=== PATIENT | male | born 1960 | race Caucasian/White ===

== ENCOUNTER 2022-05-21 09:44 | Emergency (ER) | payer MEDICARE, SELFPAY ==
[2022-05-21 09:58] VITALS: BP 112/67; PULSE 75; RESP 16; TEMP 37.1; O2SAT 99
[2022-05-21 09:59] VITALS: BP 112/67; PULSE 75; RESP 16; TEMP 37.1; O2SAT 99
--- NOTE | 2022-05-21 10:13 | ED.EYEPROB ---
HPI - Eye Problem General Chief complaint: Eye Problems Stated complaint: stye on right eye Time Seen by Provider: 05/21/22 10:20 Source: patient and RN notes reviewed Mode of arrival: ambulatory Limitations: no limitations History of Present Illness HPI Narrative: 61-year-old male presents with concern for a stye on his right upper eyelid. Reports its been present for 1-1/2 weeks and is getting more swollen, painful. He reports he has a history of styes, so he has been using his erythromycin ointment without relief. Reports he sees an cloth burler at [facility] and has an appointment in the middle of May for a checkup. He reports his eye is has crusty drainage when he wakes up in the morning with his eyelid crusted shut. He denies vision changes. Patient is currently undergoing chemotherapy treatment for liver cancer chief complaint: other Related Data Home Medications Medication Instructions Recorded Confirmed erythromycin 5 mg/gram (0.5 %) eye 1 applic ophthalmic (eye) HS 05/21/22 05/21/22 ointment hydrocodone 5 mg-acetaminophen 325 1 tablet PO PRN PRN Pain 05/21/22 05/21/22 mg tablet peg 3350-electrolytes 236 1 ml PO DAILY 05/21/22 05/21/22 gram-22.74 gram-6.74 gram-5.86 gram solution tramadol 50 mg tablet 50 mg PO PRN PRN Pain 05/21/22 05/21/22 Allergies Allergy/AdvReac Type Severity Reaction Status Date / Time hazelnut Allergy Mild Hazelnut Verified 05/21/22 09:56 acetic acid Allergy Unknown Vinegar Verified 05/21/22 09:56 Vinegar Allergy Unknown Itching Uncoded 05/21/22 09:56 Marina Nut AdvReac Mild ITCH Uncoded 05/21/22 09:56 VINEGAR; BALSAMIC AdvReac Mild ITCH Uncoded 05/21/22 09:56 Review of Systems Review of Systems: CONSTITUTIONAL: Denies malaise, chills, sweats, or fever. EYES: Denies visual changes. Reports right upper eyelid stye with redness, swelling, tenderness. Reports eye discharge ENT: Denies rhinorrhea, congestion, sinus pain, otalgia or sore throat. SKIN: Denies rash or itching. NEUROLOGIC: Denies numbness, weakness, or headache. PSYCHIATRIC: Denies anxiety or depression. All systems reviewed & are unremarkable except as noted in HPI and below PMFSH Social History Social History Smoking status: Current every day smoker Alcohol intake: never Comments At time of signature, agree with nursing past medical, surgical, social and family history. There is no relevant family history pertinent to the presenting complaint Exam Narrative: GENERAL: Well-appearing, well-nourished, and in no acute distress. HEAD: Normocephalic, atraumatic. EYES: PERRLA, sclera clear, and EOMI. No nystagmus. Right slightly sclera and conjunctivae injected. Hordeolum noted in the right upper lid with considerable erythema, edema, tenderness. No periorbital edema noted ENT: Nares clear, turbinates pink, no rhinorrhea or epistaxis. Mucous membranes moist. TM pearly clark with sharp light reflex bilaterally; no tragal tenderness. NECK: Supple. CHEST: No respiratory distress. Speaks in full sentences. HEART: Regular rate and rhythm. SKIN: Warm, dry, no visible rash. NEURO: Alert and oriented x3. PSYCH: Normal mood and affect Course Course Emergency Course: Was advised to follow-up with his cloth burler sooner, particularly if of symptoms or not improving Patient is aware of diagnosis, understands and agrees to treatment plan. Anticipatory guidance given. Patient agrees to follow-up as directed and is aware of reasons to seek care at the emergency department. Portions of this record may have been created with voice recognition software Level of Care: Express Care Visit Vital Signs Vital signs: Vital Signs Temperature 98.8 F 05/21/22 09:58 Pulse Rate 75 05/21/22 09:58 Respiratory Rate 16 05/21/22 09:58 Blood Pressure 112/67 05/21/22 09:58 Pulse Oximetry 99 05/21/22 09:58 Temperature 98.8 F 05/21/22 09:59 Pulse Rate 75 05/21/22 09:59
== END 2022-05-21 10:31 | disposition home or self-care (01) ==
PROVIDERS: Emergency Provider Nurse Practitioner; PCP Internal Medicine
DX: H00.011 Hordeolum externum right upper eyelid (principal); F17.200 Nicotine dependence, unspecified, uncomplicated; Z85.05 Personal history of malignant neoplasm of liver
CPT/HCPCS: 99203; G0463

== ENCOUNTER 2023-12-02 11:17 | Emergency (ER) | payer MEDICARE, SELFPAY ==
--- NOTE | ~2023-12-02 | XR_ITS ---
EXAMINATION: XR chest 2V DATE: 12/02/2023 12:15 INDICATION: Sternal pain. TECHNIQUE: Frontal and lateral views of the chest were obtained on 3 radiographs. COMPARISON: Chest single view 06/09/2018 FINDINGS: There is no pneumonia, pleural effusion, or pneumothorax. The heart size is normal. The karen rnum is normal. There is a right internal jugular port with tip in superior vena cava. IMPRESSION: 1. No acute cardiopulmonary disease. Reviewed, dictated and finalized at location E. ITY COMPLIANCE MANAGER
[2023-12-02 11:25] VITALS: BP 114/87; PULSE 75; RESP 16; TEMP 36.9; O2SAT 97
--- NOTE | 2023-12-02 11:52 | ED.URI ---
HPI - URI/Sore Throat General Chief Complaint: Upper Respiratory Infection Stated Complaint: CHEST PAIN/SORE THROAT Time Seen by Provider: 12/02/23 11:58 Source: patient and RN notes reviewed Mode of arrival: ambulatory Limitations: no limitations History of Present Illness HPI Narrative: 63-year-old male with history of liver cancer presents with concern for sore throat, cough, bronchial discomfort. Reports symptoms started 1 week ago. He reports it was worse on and Saturday and is starting to get better. He reports he has a chemo infusion coming up and to surgery and he wants to make sure he is okay. He denies any current fever, chills, sweats. Reports no change in his appetite. He is not taking any medications for his symptoms. MD elicited complaint: cough and sore throat Related Data Home Medications Medication Instructions Recorded Confirmed erythromycin 5 mg/gram (0.5 %) eye 1 applic ophthalmic (eye) HS 05/21/22 05/21/22 ointment hydrocodone 5 mg-acetaminophen 325 1 tablet PO PRN PRN Pain 05/21/22 05/21/22 mg tablet peg 3350-electrolytes 236 1 ml PO DAILY 05/21/22 05/21/22 gram-22.74 gram-6.74 gram-5.86 gram solution tramadol 50 mg tablet 50 mg PO PRN PRN Pain 05/21/22 05/21/22 Allergies Allergy/AdvReac Type Severity Reaction Status Date / Time hazelnut Allergy Mild Hazelnut Verified 05/21/22 09:56 acetic acid Allergy Unknown Vinegar Verified 05/21/22 09:56 Vinegar Allergy Unknown Itching Uncoded 05/21/22 09:56 Marina Nut AdvReac Mild ITCH Uncoded 05/21/22 09:56 VINEGAR; BALSAMIC AdvReac Mild ITCH Uncoded 05/21/22 09:56 Review of Systems Review of Systems: CONSTITUTIONAL: Denies malaise, chills, sweats, or fever. EYES: Denies visual changes, redness, or discharge. ENT: Denies rhinorrhea, congestion, sinus pain, otalgia and sore throat. CARDIOVASCULAR: Denies chest pain, palpitations, or edema. RESPIRATORY: Reports improving cough. Denies dyspnea. GASTROINTESTINAL: Denies abdominal pain, nausea, vomiting, diarrhea SKIN: Denies rash or itching. MUSCULOSKELETAL: Denies myalgia. NEUROLOGIC: Denies headache. All systems reviewed & are unremarkable except as noted in HPI and below PMFSH Social History Social History Smoking status: Current every day smoker Alcohol intake: never Comments At time of signature, agree with nursing past medical, surgical, social and family history. There is no relevant family history pertinent to the presenting complaint Exam Narrative: GENERAL: Well-appearing, well-nourished, and in no acute distress. HEAD: Normocephalic EYES: PERRLA, conjunctivae clear ENT: Nares clear. Mucous membranes moist. TM pearly clark with sharp light reflex bilaterally; no tragal tenderness. Oropharynx not erythematous without lesions. Tonsils not enlarged and without exudate, no drooling, no hoarseness, no trismus, uvula midline. NECK: Supple. No lymphadenopathy CHEST: Slightly diminished in the bases, otherwise clear to auscultation, breath sounds equal. No wheezing, rhonchi, rales, or stridor. No respiratory distress, speaks in full sentences. HEART: Regular rate and rhythm. No murmur heard. SKIN: Warm, dry, no rash. NEURO: Alert and oriented x3. PSYCH: Normal mood and affect Course Course Emergency Course: Patient is aware of diagnosis, understands and agrees to treatment plan. Anticipatory guidance given. Patient agrees to follow-up as directed and is aware of reasons to seek care at the emergency department. Portions of this record may have been created with voice recognition software Level of Care: Express Care Visit Vital Signs Vital signs: Vital Signs Temperature 98.4 F 12/02/23 11:25 Pulse Rate 75 12/02/23 11:25 Respiratory Rate 16 12/02/23 11:25 Blood Pressure 114/87 12/02/23 11:25 Pulse Oximetry 97 12/02/23 11:25 Temperature 98.4 F 12/02/23 11:25 Pulse Rate 75 12/02/23 11:25 Respiratory Rate 16 12/02/23 11:25 Blood
== END 2023-12-02 12:33 | disposition home or self-care (01) ==
PROVIDERS: Emergency Provider Nurse Practitioner; PCP Internal Medicine
DX: J06.9 Acute upper respiratory infection, unspecified (principal); F17.200 Nicotine dependence, unspecified, uncomplicated
CPT/HCPCS: 71046; 87081; 87880; 99213; G0463

== ENCOUNTER 2024-03-20 10:28 | Emergency (ER) | payer MEDICARE, SELFPAY ==
--- NOTE | 2024-03-20 10:31 | ED.URI ---
HPI - URI/Sore Throat General Chief Complaint: Upper Respiratory Infection Stated Complaint: sorethroat Time Seen by Provider: 03/20/24 10:41 Source: patient, RN notes reviewed and old records reviewed Mode of arrival: ambulatory Limitations: no limitations History of Present Illness HPI Narrative: 63-year-old male presents to the [facility] with complaints of a sore throat for 1 week. Has been using salt water gargles and throat lozenges. Denies any nasal congestion, ear pain, coughing. Denies fever Currently undergoing chemotherapy for liver cancer. Goes to [facility] and receives chemotherapy every Saturday. Is due to go for chemotherapy this coming Saturday03/24/24 Pertinent past history: immunosuppression Onset (ago): week(s) (1) Consistency: constant and progressively worsening Treatments prior to arrival: other (Salt water gargles, lozenges) Related Data Allergies Allergy/AdvReac Type Severity Reaction Status Date / Time hazelnut Allergy Mild Hazelnut Verified 03/20/24 10:39 acetic acid Allergy Unknown Vinegar Verified 03/20/24 10:39 Vinegar Allergy Unknown Itching Uncoded 03/20/24 10:39 Marina Nut AdvReac Mild ITCH Uncoded 03/20/24 10:39 VINEGAR; BALSAMIC AdvReac Mild ITCH Uncoded 03/20/24 10:39 Review of Systems Review of Systems: All systems reviewed & are unremarkable except as noted in HPI and below Constitutional: Constitutional: Reports no additional constitutional complaints Eyes: Eyes: Reports no additional eye complaints ENT: Reports as per HPI and Reports sore throat Cardiovascular: Cardiovascular: Reports no additional cardiovascular complaints, Denies chest pain and Denies dyspnea Respiratory: Respiratory: Reports no additional respiratory complaints, Denies chest congestion, Denies cough and Denies dyspnea Gastrointestinal: Gastrointestinal: Reports no additional gastrointestinal complaints, Denies abdominal pain, Denies nausea and Denies vomiting Musculoskeletal: Musculoskeletal: Reports no additional musculoskeletal complaints Integumentary/Breasts: Skin/Breast: Reports system reviewed and no additional complaints, except as docu Neurologic: Reports system reviewed and no additional complaints, except as documented Psychiatric: Psychiatric: Reports no additional psychiatric complaints Allergic/Immunologic: Allergic/Immunologic: Reports no additional allergic/immunologic complaints PMFSH Past Medical History Medical History Liver cancer Treatment At [facility], chemo therapy every 3 weeks on Tuesdays Social History Social History (Updated 03/20/24 @ 10:54 by Marzena Chavis APRN) Smoking status: Former smoker Alcohol intake: never Comments At the time of my signature, I reviewed and agree with the nursing past medical, surgical, social, and family history. There is no relevant family history pertinent to the patient complaint. Exam Const: General: cooperative, comfortable, no acute distress, well developed, alert, ill appearing chronically and well nourished Nutritional Appearance: well nourished Orientation/consciousness: patient oriented x3 Limitations: no limitations HENMT: Head: normal to inspection Ears: hearing grossly normal bilaterally, external ears normal, TM's normal bilaterally, EAC's normal, mastoids normal and no periauricular adenopathy Face/Nose/Sinus: Normal external nose present, Normal nares present, Normal nasal mucous membranes and turbinates present, normal facial exam and face symmetric Face and sinus: normal facial exam, sinuses nontender and face symmetric Throat: uvula midline, postnasal drainage and no uvular edema Eyes: General: appearance normal, both eyes and all related structures Alignment and Position: alignment normal Periorbital: periorbital findings normal Pupils: Equal, round and reactive pupils present EOM: EOMs intact bilaterally Neck: Neck: normal visual inspection, full ROM,
[2024-03-20 10:40] VITALS: BP 112/90; PULSE 105; RESP 16; TEMP 37; O2SAT 99
== END 2024-03-20 11:00 | disposition home or self-care (01) ==
PROVIDERS: Emergency Provider Nurse Practitioner
DX: R09.82 Postnasal drip (principal); J02.9 Acute pharyngitis, unspecified; Z87.891 Personal history of nicotine dependence; C22.9 Malignant neoplasm of liver, not specified as primary or secondary
CPT/HCPCS: 87081; 87880; 99213; G0463

== ENCOUNTER 2024-12-08 08:45 | Outpatient (RCR) | payer MEDICARE, SELFPAY ==
[2024-10-02 08:27] VITALS: BP 139/73; PULSE 82; RESP 14; TEMP 37.4; O2SAT 96; BMI 18.8
--- NOTE | 2024-10-02 15:03 | PDRADONCCN ---
[facility] Date/Time Seen Date/Time: 10/02/24 15:03 History of Present Illness History of Present Illness: RADIATION ONCOLOGY CONSULTATION DOS: 10/02/2024 Diagnosis: Hypopharynx SCC New Patient History of Present Illness/Review and Summary of Existing Medical Records: ?Mr. Hays is a 64 y/o new patient who is seen today in [facility] at the request of Dr. Fried to be evaluated and discuss radiation treatment options for his recent diagnosis of hypopharynx SCC cancer.? Information pertinent to this evaluation is as follows: 64 y/o male with extensive prior smoking and alcohol use He has a history of cirrhosis and multifocal HCC diagnosed in 2018 (per patient). He has received systemic therapy with lenvatinib/pembrolizumab and was transitioned to atezolizumab + bevacizumab in 2021. He was found to have additional liver lesions in 2023. He underwent biopsy of a segment 8 liver lesion on 11/08/23 which was consistent with intrahepatic cholangiocarcinoma. He received liver SBRT to segment 8 lesion 50Gy/5Fx completed 01/03/24 and US/CT-guided thermal ablation of segments IVB + V lesions in 01/2024. He developed a sore throat Surveillance PET imaging from 05/2024 showed a PET-avid right hypopharynx mass and several right SCV/upper mediastinal PET-avid LN concerning for malignancy. He underwent biopsy of right pyriform sinus lesion on 08/06/24 (Dr. Jj) which showed SCC, moderately differentiated, keratinizing. Repeat PET from 08/2024 showed progression of the disease involving the right hypopharynx and right neck. The right hypopharynx mass is bulky and I suspect is invading the thyroid cartilage (T4). There are multiple ipsilateral right neck nodes levels II, III, IV (N2b). There is also a PET-avid anterior right oral cavity lesion. The liver appears to be controlled at this point. He has been referred for consideration of definitive chemoRT. He has received his care at [facility] with Dr. Kinza Fried (Rad Onc) and Dr. Jacob Dobson (Med Onc). He feels generally well. He has sore throat and hoarseness. He has noticed some dysphagia but is still trying to get nutrition in orally as much as possible. He has palpable right neck masses. No other specific concerns. He is retired. He lives in [place], [place] with his brother and sister. He can drive to/from appointments. Prior tobacco and alcohol use, but discontinued. ? Review of Systems: See HPI.? Past Medical/Surgical History Prior RT in 12/2023 as noted above No history of active collagen vascular disease including scleroderma No implanted pacemaker or defibrillator Social History REVIEWED Family History REVIEWED Allergies No IV contrast or iodine allergy ? Medications REVIEWED Physical Exam Vital signs: see RN note ECO General Appearance:? The patient is a well-developed, well-nourished male, sitting, in no acute distress. ? Eyes: EOMI.? Sclerae are anicteric. ENMT: Mucous membranes are moist.? The oropharynx is clear. Speech: Clear, fluent. +Hoarseness present. Dentition: Edentulous in lowers, poor dentition in upper Lymphatics:? He has palpable right neck nodes involving level II, III, IV Respiratory:? Breathing comfortably at rest without wheeze Skin: Skin of the head and neck has good turgor with no evidence of infection, tumor invasion, or breakdown.? There are no surgical scars to suggest prior head and neck surgery. GI: Mild TTP to RUQ abdomen Radiology Review:? I personally reviewed the available images from the radiologic examinations noted above in the HPI, with the findings as noted above. Laboratory Review: reviewed Histopathology: reviewed Diagnosis: 64 y/o male with extensive prior smoking and alcohol use He has a history of cirrhosis and multifocal HCC diagnosed in 2018 (per patient). He has received systemic therapy with lenvatinib/pembrolizumab and was transitioned to atezolizumab + bevacizumab in 2021.? He was found to have additional liver lesions in 2023. He underwent biopsy of a segment 8 liver lesion on 11/08/23 which was consistent with intrahepatic cholangiocarcinoma. He received liver SBRT to segment 8 lesion 50Gy/5Fx completed 01/03/24 (Dr. Fried) and US/CT-guided thermal ablation of segments IVB + V lesions in 01/2024. He remains on immunotherapy (Dr. Dosbon). His liver disease (HCC, cholangio) appears stable based on most recent PET. 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 Referred for chemoRT. He has an indeterminate PET-avid oral cavity/lip lesion. Plan: I did not have copies of his outside images (CT, PET) to review prior to seeing him for consultation today. I did review them prior to writing this consultation report. I also do not have any office notes/operative notes from Dr. Dobson, Dr. Fried, or Dr. Jj and have requested these. I need to discuss his oral cavity lesion with Dr. Jj to see if this has been worked-up/biopsied. I did not see anything obvious on my exam, however I need to do a more thorough oral cavity/lip exam to further evaluate this area. He certainly needs to undergo dental clearance as well. We discussed the indication for chemoradiation therapy in this situation, which is definitive treatment of his hypopharynx cancer.? The logistics and anticipated side effects of a course of definitive chemoradiation were discussed.? Prior to the start of radiation, CT simulation would need to be performed.? These images will be used in the treatment planning process, and treatment would be able to begin approximately 1-2 weeks after simulation. Treatment will require close coordination with his medical oncologist and ENT Informed Consent: The rationale for and potential complications of radiotherapy in this setting were discussed in detail with the patient. They are aware of the potential complications to radiosensitive normal tissue structures both in and out of the radiation field.? Potential complications include, but are not limited to: Eyes: Causing decreased visual acuity, pain with eye movement, or permanent dry eye Hair: Causing hair loss in the treatment field that could become permanent Taste: Causing change in the ability to taste certain foods that could become permanent Mouth: Causing dry mouth during treatment that may become permanent.? Regardless of treatment technique, some component of dry mouth is expected. Teeth: Tooth damage both from the radiation itself and from dental/periodontal disease resulting from chronic xerostomia Swallowing: Swallowing dysfunction caused by either treatment effect of tumor growth could possibly prevent feeding which could necessitate the use of a feeding tube.? In rare occurrences the feeding tube can be permanent. Breathing: Breathing dysfunction caused by either treatment effect or tumor growth could possibly prevent feeding which could necessitate a tracheostomy.? This could be permanent. Bones: The mandible will be at increased risk for bone exposure and fracture. Nerves: Nerves in the treatment field can be damaged and not function properly after radiation. Spinal Cord/Brainstem: Causing neurologic dysfunction that may be debilitating and permanent and/or fatal. We estimated that the risk of a severe complication is 5%.? Next steps: 1.? Dental evaluation.? This has been setup for next week. 2.? CT Simulation will be scheduled in the coming week at the time of nearest convenience to the patient. Pain score 0/10, no change to pain mgmt required. Thank you for the opportunity to participate in his score's care.? Please do not hesitate to contact me if I can provide any additional assistance. Pito Alarcon MD Time spent: 60 min Medical History Medical History (Updated 10/02/24 @ 11:14 by Linn Seaman, RT(R)) Laryngeal carcinoma Liver cancer Treatment At [facility], chemo therapy every 3 weeks on Tuesdays Social History Social History (Updated 03/20/24 @ 10:54 by Marzena Chavis, YOUTH DEVELOPMENT SPECIALIST) Smoking packs per day: 1 Smoking cigarettes per day: 20.0 Years smoked: 35 Smoking pack-years: 35.00 Smoking status: Former smoker Tobacco type: cigarettes Alcohol intake: never Spiritual care concerns: No Allergies Allergies Allergy/AdvReac Type Severity Reaction Status Date / Time hazelnut Allergy Mild Hazelnut Verified 03/20/24 10:39 acetic acid Allergy Unknown Vinegar Verified 03/20/24 10:39 Vinegar Allergy Unknown Itching Uncoded 03/20/24 10:39 Marina Nut AdvReac Mild ITCH Uncoded 03/20/24 10:39 VINEGAR; BALSAMIC AdvReac Mild ITCH Uncoded 03/20/24 10:39 Exam Vital Signs: Vital Signs - 24 hr 10/02/24 08:27 Temperature 37.4 C Pulse Rate 82 Respiratory Rate 14 Blood Pressure 139/73 Pulse Oximetry 96
[2024-10-06 10:31] VITALS: BP 123/98; PULSE 99; RESP 12; TEMP 36.8; O2SAT 100
--- NOTE | 2024-10-06 14:04 | PDRADONCFUV ---
Follow Up Note Date/Time Date/Time: 10/06/24 14:04 Interval History Interval History: RADIATION ONCOLOGY FOLLOW UP DOS: 10/06/24 DIAGNOSIS: 64 y/o male with extensive prior smoking and alcohol use with history of cirrhosis and multifocal HCC diagnosed in 2018 (per patient). He has received systemic therapy with lenvatinib/pembrolizumab and was transitioned to atezolizumab + bevacizumab in 2021.? He was found to have additional liver lesions in 2023. He underwent biopsy of a segment 8 liver lesion on 11/08/23 which was consistent with intrahepatic cholangiocarcinoma. He received liver SBRT to segment 8 lesion 50Gy/5Fx completed 01/03/24 (Dr. Fried) and US/CT-guided thermal ablation of segments IVB + V lesions in 01/2024. He remains on immunotherapy (Dr. Dobson). His liver disease (HCC, cholangio) appears stable based on most recent PET. 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 Referred for chemoRT. He has an indeterminate PET-avid oral cavity/lip lesion, however I am unable to see or feel any abnormality on examination. I plan to treat him with chemoRT 70Gy/35 Fx with concurrent high-dose cisplatin (Dr. Dobson) HISTORY & NARRATIVE:? He was previously seen in consultation and returns today for his CT simulation.?? Since consultation, he reports feeling generally well.? There have been no significant changes to the health history in the interim. He will see an oral surgeon tomorrow for potential extractions. PHYSICAL EXAMINATION:? Vital signs: see RN note ECO General Appearance:? The patient is a well-developed, well-nourished male, sitting, in no acute distress.? HEENT: normocephalic, atraumatic.? Mucus membranes moist Lungs:? Breathing comfortably at rest without wheeze Abdomen: Non-distended Skin: warm, dry, no rashes or lesions Neurologic: Patient awake and alert, responds to questions appropriately ASSESSMENT & PLAN:?? He returns today for CT simulation.? I reviewed with him the steps involved in the CT simulation today. We also discussed the logistics involved with radiation treatment planning. We reviewed the anticipated acute and late effects of treatment. Written informed consent was signed in clinic today. Plan to start in 2 weeks. Will coordinate with Dr. Dobson. Based on his CT simulation, I think starting as soon as possible is vital as he is at risk for airway obstruction given the advanced nature of his tumor. He is aware that Dr. Hodgson is taking over my practice at [place]. He knows to contact me with questions or concerns prior to the return visit. Pain score 0/10, so no change to pain mgmt. required. Pito Alarcon MD H&P - Exam Vital Signs: Vital Signs - 24 hr 10/06/24 10:31 Temperature 36.8 C Pulse Rate 99 Respiratory Rate 12 Blood Pressure 123/98 H Pulse Oximetry 100
--- NOTE | 2024-10-06 14:27 | PDRADONCFUV ---
Follow Up Note Date/Time Date/Time: 10/06/24 14:27 Interval History Interval History: RADIATION ONCOLOGY CLINICAL TREATMENT PLAN PATIENT NAME: Lawrence Hays PROCEDURE DATE: 10/06/24 DIAGNOSIS: Right hypopharynx SCC TREATMENT INTENT: Definitive SPECIAL TEST(S) INTERPRETED FOR TUMOR DELINEATION: Diagnostic CT with contrast, PET/CT CHEMOTHERAPY CONSIDERATIONS: Concurrent TREATMENT SITE(S): Right hypopharynx, bilateral neck NUMBER OF AREAS OR MOORE: 1 treatment area NUMBER OF TREATMENT PORTS: IMRT, number to be determined during planning process IMMOBILIZATION: Aquaplast mask TREATMENT DEVICES: Custom blocks of complex design TREATMENT MODALITY: External photon beam PLANNED DOSE: 70 Gy to the primary + involved LN; 56 Gy to elective ceci regions (bilateral neck) FRACTIONATION: Daily TECHNIQUE CONTEMPLATED: IMRT MEDICAL NECESSITY FOR IMRT TREATMENT PLANNING: The target volume is in close proximity to critical normal structures (spinal cord, salivary structures, constrictors, brainstem, larynx, optic structures) and must be treated with narrow margins to adequately protect immediately adjacent structures in order to reduce the probability of radiation toxicity. The dose required to deliver to the target volume exceeds the tolerance of these adjacent normal structures, which are so close that IMRT is the only treatment modality that can achieve this, as opposed to conventional 3D-treatment planning. MEDICAL NECESSITY FOR IGRT TREATMENT PLANNING: There is inherent patient setup variation that could result in geometric miss of the target volume and/or excessive dose delivery to the adjacent normal structures. IGRT is the only treatment modality that can correct for daily variances in target volume location, further improving the therapeutic ratio over IMRT alone. Pito Alarcon MD H&P - Exam Vital Signs: Vital Signs - 24 hr 10/06/24 10:31 Temperature 36.8 C Pulse Rate 99 Respiratory Rate 12 Blood Pressure 123/98 H Pulse Oximetry 100
--- NOTE | 2024-10-06 14:46 | PDRADONCFUV ---
Follow Up Note Date/Time Date/Time: 10/06/24 14:46 Interval History Interval History: Procedure Date: 10/06/[address] SIMULATION PROCEDURE / [id number] PURPOSE: The patient is undergoing a virtual CT simulation for external beam radiation treatment planning. Today?s CT dataset will be utilized for intensity modulated treatment planning (IMRT). TREATMENT SITE(S): Right hypopharynx, bilateral neck NUMBER OF AREAS OR MOORE: One treatment area was simulated today. NUMBER OF PORTS: IMRT using multiple static gantry angles, arcs, or helical tomotherapy will be needed to cover the treatment volume and adequately protect nearby critical normal tissues. The number of ports will be determined during the treatment planning process. EQUIPMENT USED: Simulation was performed on the department?s dedicated CT simulator. IMMOBILIZATION: An aquaplast face mask was fabricated to immobilize the patient?s head and neck during treatment. CONTRAST MEDIA: The use of contrast was not required for this simulation EXTERNAL MARKERS: No external markers were used TATTOOS: Positioning tattoos were not required. Three-point setup was marked on the Aquaplast mask. BLOCKING: An intensity map generated by multiple MLC-shaped beamlets of complex design will be constructed as part of an IMRT treatment plan. COMPENSATING FILTER / WEDGE: None ISODOSE PLAN: An IMRT treatment plan will be performed to precisely deliver a specified dose to the treatment volume with narrow margins and to protect adjacent critical normal tissues from receiving excessive radiation exposure. SCHEDULING Prior to delivering the first radiation fraction, a simulation will be performed on the linear accelerator utilizing electronic portal imaging to verify the isocenter location and block design. DAILY IMAGE GUIDANCE: Utilizing the integrated CT scanner on the treatment machine, CT images through the treatment volume will be acquired daily prior to treatment to ensure precise patient positioning, thus allowing treatment of the tumor with narrow margins. MEDICAL NECESSITY FOR IMRT TREATMENT PANNING: The target volume is in close proximity to critical normal structures (parotid glands, spinal cord, brainstem) and must be treated with narrow margins to adequately protect immediately adjacent structures in order to reduce the probability of radiation toxicity. In addition, the target volume is concave and critical normal tissues (parotid glands) are around that concavity. Sparing the parotid glands is necessary to reduce the risk of severe permanent xerostomia. IMRT is the only treatment modality that can achieve this, as opposed to conventional 3D-treatment planning. MEDICAL NECESSITY FOR IGRT TREATMENT PLANNING: There is inherent patient setup variation that could result in geometric miss of the target volume and/or excessive dose delivery to the parotid glands. IGRT is the only treatment modality that can correct for daily variances in target volume location, further improving the therapeutic ratio over IMRT alone. MEDICAL NECESSITY: A special treatment management code (27623) has been charged for this patient due to the additional time and effort required of myself and the department staff while performing and/or managing a special treatment situation. This procedure has been charged only once during the entire course of treatment. SPECIAL TREATMENT PROCEDURE: Concurrent Chemotherapy The administration of concurrent chemotherapy may result in greater side effects during and after the patient?s planned course of radiation therapy. Radiation can react adversely with the effects of chemotherapy and create medical problems of a much greater severity than would be seen in a patient receiving radiation alone. This will considerably increase the complexity of the current treatment plan and on-going management of this patient. Pito Alarcon MD H&P - Exam Vital Signs: Vital Signs - 24 hr 10/06/24 10:31 Temperature 36.8 C Pulse Rate 99 Respiratory Rate 12 Blood Pressure 123/98 H Pulse Oximetry 100
--- NOTE | 2024-10-20 17:00 | P.RADPN_ITS ---
Follow Up Note Date/Time Date/Time: 10/20/24 17:00 Interval History Interval History: Procedure Date: 10/21/24 RADIATION ONCOLOGY VERIFICATION SIMULATION PURPOSE: Lawrence Hays initially underwent virtual CT simulation. A simple simulation was performed on the linear accelerator utilizing the integrated CBCT for isocenter verification prior to treatment delivery of the first fraction. EQUIPMENT USED: Simulation was performed on the linear accelerator. PROCEDURE DETAILS: This simulation was performed prior to the first radiation fraction to the hypoharynx and bilateral neck. The patient was placed on the treatment couch w ith his body immobilized using a custom fabricated Aquaplast mask in treatment position and aligned to the 3-point setup mabry. A CBCT was acquired through the treatment area. The CBCT images were fused and aligned to the treatment planning CT image set. I reviewed the CT alignment images and made any necessary adjustments. Couch shifts were calculated in order to bring the patient into precise alignment prior to treatment delivery. ASSESSMENT: The isocenter alignment process was successful. ORDERS: Proceed with treatment as planned. Pito Alarcon MD
--- NOTE | 2024-10-20 17:00 | PDRADONCFUV ---
Follow Up Note Date/Time Date/Time: 10/20/24 17:00 Interval History Interval History: SPECIAL TREATMENT MANAGEMENT MEDICAL NECESSITY: A special treatment management code (04963) has been charged for this patient due to the additional time and effort required of myself and the department staff while performing and/or managing a special treatment situation. This procedure has been charged only once during the entire course of treatment. SPECIAL TREATMENT PROCEDURE: The administration of concurrent/recent chemotherapy may result in greater side effects during and after the patient?s planned course of radiation therapy. Radiation can react adversely with the effects of chemotherapy and create medical problems of a much greater severity than would be seen in a patient receiving radiation alone. This will considerably increase the complexity of the current treatment plan and on-going management of this patient.
[2024-10-27 09:21] VITALS: BP 155/73; PULSE 74; RESP 20; TEMP 36.6; O2SAT 99
--- NOTE | 2024-10-27 09:32 | PDRADONCFUV ---
Follow Up Note Date/Time Date/Time: 10/27/24 09:32 Interval History Interval History: RADIATION ONCOLOGY ON-TREATMENT VISIT DATE: 10/27/24 DIAGNOSIS: 64 y/o male with extensive prior smoking and alcohol use with history of cirrhosis and multifocal HCC diagnosed in 2018 (per patient). He has received systemic therapy with lenvatinib/pembrolizumab and was transitioned to atezolizumab + bevacizumab in 2021.? He was found to have additional liver lesions in 2023. He underwent biopsy of a segment 8 liver lesion on 11/08/23 which was consistent with intrahepatic cholangiocarcinoma. He received liver SBRT to segment 8 lesion 50Gy/5Fx completed 01/03/24 (Dr. Fried) and US/CT-guided thermal ablation of segments IVB + V lesions in 01/2024. He remains on immunotherapy (Dr. Dobson). His liver disease (HCC, cholangio) appears stable based on most recent PET. 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 Referred for chemoRT. He has an indeterminate PET-avid oral cavity/lip lesion, however I am unable to see or feel any abnormality on examination. I plan to treat him with chemoRT 70Gy/35 Fx with concurrent high-dose cisplatin (Dr. Dobson) SITE: Hypopharynx + bilateral neck DOSE: 1000 cGy of planned 7000 cGy (5 of 35 Fx) HISTORY: ?He reports feeling generally well. He has been having progressive dysphagia over last few weeks. [facility] Med On[facility] set him up for G-tube on 10/28. He is down 10-12 lb since starting last week, likely due to dehydration. He actually has noticed some improvement with swallowing since beginning chemoRT, however I agree with plan for G-tube placement. Using eucerin skin cream to neck. Tramadol for pain control. Still quite hoarse. No other concerns EXAM: Well-appearing, NAD. Breathing comfortably on RA. +Hoarseness present ASSESSMENT/PLAN: Tolerating radiotherapy well. Imaging checked. Continue radiation therapy as planned. I reviewed the H&N handout on mgmt of acute toxicity with chemoRT. Recommend skin cream to neck. He is using eucerin. Dry mouth spray (lubricity) given He will have G-tube placed on 10/28/24 at [facility] He is setup for IVF through [facility] He is using tramadol for pain mgmt. Discussed that this may need to be escalated. Discussed that he may benefit from MMW, viscous lidocaine in future Encouraged him to optimize oral intake (liquids, solids/nutritional supplements) as much as possible. He is aware Dr. Hodgson will be taking over his care later this week Pain 1-12/07, managed with tramadol Pito Alarcon MD H&P - Exam Vital Signs: Vital Signs - 24 hr 10/27/24 09:21 Temperature 36.6 C Pulse Rate 74 Respiratory Rate 20 Blood Pressure 155/73 H Pulse Oximetry 99
--- NOTE | 2024-10-27 09:33 | PDRADONCFUV ---
Follow Up Note Date/Time Date/Time: 10/27/24 09:33 Interval History Interval History: Procedure Date: 10/27/[address] SIMULATION PROCEDURE / [id number] PURPOSE: The patient is undergoing a virtual CT simulation for external beam radiation treatment planning. Today?s CT dataset will be utilized for intensity modulated treatment planning (IMRT). RESIM REQUIRED DUE TO CHANGE IN ANATOMY (MANDIBLE POSITION) TREATMENT SITE(S): Right hypopharynx, bilateral neck NUMBER OF AREAS OR MOORE: One treatment area was simulated today. NUMBER OF PORTS: IMRT using multiple static gantry angles, arcs, or helical tomotherapy will be needed to cover the treatment volume and adequately protect nearby critical normal tissues. The number of ports will be determined during the treatment planning process. EQUIPMENT USED: Simulation was performed on the department?s dedicated CT simulator. IMMOBILIZATION: aquaplast face mask CONTRAST MEDIA: The use of contrast was not required for this simulation EXTERNAL MARKERS: No external markers were used TATTOOS: Positioning tattoos were not required. Three-point setup was marked on the Aquaplast mask. BLOCKING: An intensity map generated by multiple MLC-shaped beamlets of complex design will be constructed as part of an IMRT treatment plan. COMPENSATING FILTER / WEDGE: None ISODOSE PLAN: An IMRT treatment plan will be performed to precisely deliver a specified dose to the treatment volume with narrow margins and to protect adjacent critical normal tissues from receiving excessive radiation exposure. SCHEDULING Prior to delivering the first radiation fraction, a simulation will be performed on the linear accelerator utilizing electronic portal imaging to verify the isocenter location and block design. DAILY IMAGE GUIDANCE: Utilizing the integrated CT scanner on the treatment machine, CT images through the treatment volume will be acquired daily prior to treatment to ensure precise patient positioning, thus allowing treatment of the tumor with narrow margins. MEDICAL NECESSITY FOR IMRT TREATMENT PANNING: The target volume is in close proximity to critical normal structures (parotid glands, spinal cord, brainstem) and must be treated with narrow margins to adequately protect immediately adjacent structures in order to reduce the probability of radiation toxicity. In addition, the target volume is concave and critical normal tissues (parotid glands) are around that concavity. Sparing the parotid glands is necessary to reduce the risk of severe permanent xerostomia. IMRT is the only treatment modality that can achieve this, as opposed to conventional 3D-treatment planning. MEDICAL NECESSITY FOR IGRT TREATMENT PLANNING: There is inherent patient setup variation that could result in geometric miss of the target volume and/or excessive dose delivery to the parotid glands. IGRT is the only treatment modality that can correct for daily variances in target volume location, further improving the therapeutic ratio over IMRT alone. MEDICAL NECESSITY: A special treatment management code (92554) has been charged for this patient due to the additional time and effort required of myself and the department staff while performing and/or managing a special treatment situation. This procedure has been charged only once during the entire course of treatment. SPECIAL TREATMENT PROCEDURE: Concurrent Chemotherapy The administration of concurrent chemotherapy may result in greater side effects during and after the patient?s planned course of radiation therapy. Radiation can react adversely with the effects of chemotherapy and create medical problems of a much greater severity than would be seen in a patient receiving radiation alone. This will considerably increase the complexity of the current treatment plan and on-going management of this patient. Pito Alarcon MD H&P - Exam Vital Signs: Vital Signs - 24 hr 10/27/24 09:21 Temperature 36.6 C Pulse Rate 74 Respiratory Rate 20 Blood Pressure 155/73 H Pulse Oximetry 99
[2024-11-03 14:26] VITALS: BP 141/53; PULSE 68; RESP 20; TEMP 36.5; O2SAT 99
--- NOTE | 2024-11-05 11:48 | WPDRADONCOTV ---
Assessment/Plan Assessment Assessment: Patient has been tolerating the treatments well. Denies any mucositis. Minimal taste changes. Plan Plan: Will continue treatments. On Treatment Visit Date/Time of Treatment Date/Time: 11/05/24 11:48 Identifying data: Mr. Whittaker is a very pleasant 64-year-old gentleman who was been diagnosed with squamous cell carcinoma of the hypopharynx and has been receiving external beam radiation to the bilateral neck with concurrent chemotherapy. Patient was recommended to receive 7000 cGy at 200 cGy per fraction for 35 fractions. Initial treatment was bilateral necks to a cumulative dose of 5600 cGy followed by boost to the primary area. However patient had significant tumor response and hence had to replan after 8 treatments and patient is receiving his treatment after the planning. Dose: 2200/5600 cGy
[2024-11-12 08:48] VITALS: BP 152/70; PULSE 67; RESP 12; TEMP 36.9; O2SAT 100
--- NOTE | 2024-11-12 09:07 | WPDRADONCOTV ---
H&P - Exam Vital Signs: Vital Signs - 24 hr 11/12/24 08:48 Temperature 36.9 C Pulse Rate 67 Respiratory Rate 12 Blood Pressure 152/70 H Pulse Oximetry 100 Exam Other physical findings: Skin appears to be unremarkable with some brisk erythema no signs of desquamation. The patient is PEG dependent but however can swallow liquids. The mass appears to be shrinking. Pain rated 0/10. Assessment/Plan Assessment Assessment: Tolerating the treatment with good clinical response Plan Plan: Continue to treat with concurrent chemoradiation with a curative intent On Treatment Visit Date/Time of Treatment Date/Time: 11/12/24 09:07 Identifying data: Patient is a 62-year-old gentleman who was been read commended to undergo concurrent chemoradiation for a known diagnosis of hypo pharyngeal cancer Site: Hypopharynx Dose: 17/35 fractions at 200 cGy per fraction to a cumulative dose of 3400 cGy
[2024-11-19 08:47] VITALS: BP 126/60; PULSE 75; RESP 18; TEMP 36.5; O2SAT 100
--- NOTE | 2024-11-19 09:26 | WPDRADONCOTV ---
H&P - Exam Vital Signs: Vital Signs - 24 hr 11/19/24 08:47 Temperature 36.5 C Pulse Rate 75 Respiratory Rate 18 Blood Pressure 126/60 Pulse Oximetry 100 Exam Other physical findings: On physical examination patient has brisk erythema over the neck area . No mucositis. PEG dependent and complains of constipation. Assessment/Plan Assessment Assessment: Tolerating the treatments well. Will continue treatment Plan Plan: Recommended to discuss with medical Oncologist regarding his constipation. On Treatment Visit Date/Time of Treatment Date/Time: 11/19/24 09:26 Identifying data: Identifying data: Patient is a 62-year-old gentleman who was been read commended to undergo concurrent chemoradiation for a known diagnosis of hypo pharyngeal cancer Site: Hypopharynx Dose: 22/35 fractions at 200 cGy per fraction to a cumulative dose of 4400 cGy
--- NOTE | 2024-11-26 15:36 | P.RADPN_ITS ---
Follow Up Note Date/Time Date/Time: 11/26/24 15:36 Interval History Interval History: I called him at the request of the [facility] therapists as Dr. Hodgson is off in the afternoon today. He is experiencing sore throat, dysphagia, odynophagia. He has a G-tube which he is using for nutrition fortunately. He uses tramadol for pain control which is not adeqautely controlling his pain. I will send a Rx for carafate TID to be taken prior to meals, viscous lidocaine PRN. I suspect that he needs opiate medications. I am unable to prescribe these through [facility] as he is not registered in the [employer] system and cannot prescribe them remotely through [facility] EMR. I would defer that to Dr. Hodgson or his medical oncologist. Pito Alarcon MD
[2024-12-03 08:43] VITALS: BP 130/59; PULSE 96; RESP 20; TEMP 36.9; O2SAT 95
--- NOTE | 2024-12-03 09:07 | WPDRADONCOTV ---
On Treatment Visit Date/Time of Treatment Date/Time: 12/03/24 09:07 Identifying data: Identifying data: Patient is a 62-year-old gentleman who was been read commended to undergo concurrent chemoradiation for a known diagnosis of hypo pharyngeal cancer Site: Hypopharynx Dose: 32/35 fractions at 200 cGy per fraction to a cumulative dose of 4400 cGy Site: Bilateral neck H&P - Exam General: Very fragile gentleman who looks cachectic . Vital Signs: Vital Signs - 24 hr 12/03/24 08:43 Temperature 36.9 C Pulse Rate 96 Respiratory Rate 20 Blood Pressure 130/59 L Pulse Oximetry 95 Exam Other physical findings: Patient seems to be having no difficulties in swallowing. Continue to have some pain and discomfort while swallowing for which patient was prescribed Magic mouthwash and seems to be doing well with that. Skin appears to be a dramatic with brisk erythema over the irradiated site on bilateral neck with no signs of desquamation. No mucositis. No thrush. Assessment/Plan Assessment Assessment: Patient continues to be in his last week of his treatment and seems to be doing well with expected postradiation side effects. We discussed about expected side effects from radiation which seems to continue and get worse the next few weeks and by 6 week patient should be able to feel better with his symptoms. Recommended to continue his skin care, oral care continue with Magic mouthwash what. And see pain management for pain Plan Plan: Patient was recommended to see me back in 6 weeks after completing his radiation
--- NOTE | 2024-12-08 10:20 | P.RADONC_ITS ---
On Treatment Visit Date/Time of Treatment Date/Time: 12/08/24 10:20 History: Identifying data: Identifying data: Patient is a 62-year-old gentleman who was been read commended to undergo concurrent chemoradiation for a known diagnosis of hypo pharyngeal cancer Site: Hypopharynx Dose: 35/35 fractions at 200 cGy per fraction to a cumulative dose of 7000 cGy Site: Bilateral neck Exam: He is thin, frail, cachetic appearing. Here with brother today. His brother has been trying to work on placement for him in SNF/custodial for continued care. Patient has been staying with brother but his brother is having difficulty caring for him. Patient seems to be having no difficulties in swallowing. Continue to have some pain and discomfort while swallowing for which patient was prescribed Magic mouthwash and seems to be doing well with that. He has hoarseness. Skin appears to be a dramatic with brisk erythema over the irradiated site on bilateral neck with no signs of desquamation. No mucositis. No thrush. Assessment Assessment: Patient completed chemoRT today. He is experiencing expected postradiation side effects. Recommended to continue his skin care, oral care continue with Magic mouthwash See pain management for pain Encouraged aggressive hydration and intake. He is not regularly using G-tube. Encouraged him to do 4 feeds per day. Plan Plan: I advised that he RTC in 1 wk for re-evaluation to ensure that he is maintaining his weight and recovering appropriately. His brother is working with the [facility] Oncology team to facilitate placement for the patient which is probably for the best. Call with questions or concerns. Pito Alarcon MD
== END 2024-12-28 08:21 ==
LOC: AMCRADONC 08:45
PROVIDERS: PCP Internal Medicine; Visit Provider Radiology Radiation Oncology
DX: Z51.0 Encounter for antineoplastic radiation therapy (principal); C13.9 Malignant neoplasm of hypopharynx, unspecified; L53.9 Erythematous condition, unspecified; C22.0 Liver cell carcinoma; R49.0 Dysphonia; J02.9 Acute pharyngitis, unspecified; F10.90 Alcohol use, unspecified, uncomplicated; R59.0 Localized enlarged lymph nodes; K74.60 Unspecified cirrhosis of liver; Z92.3 Personal history of irradiation; R13.10 Dysphagia, unspecified; Z87.891 Personal history of nicotine dependence; Z79.899 Other long term (current) drug therapy; Z97.8 Presence of other specified devices; J43.9 Emphysema, unspecified
CPT/HCPCS: 77280; 77290; 77300; 77301; 77334; 77336; 77338; 77386; 99212; G0463